=== PATIENT | male | born 1990 | race Caucasian/White ===

== ENCOUNTER 2019-01-27 06:43 | Emergency (ER) | payer OTHER ==
[~2019-01-27] VITALS: Ht 175.3 cm; Wt 81.7 kg
[2019-01-27] MEDS ORDERED: HIBICLENS118 ML TOP (07:36)
[2019-01-27] MEDS ORDERED: BACTRIM DS TAB1 EACH PO (07:36)
[2019-01-27] MEDS ORDERED: CORTIZONE-10 PL28 GM TOP (07:36)
[2019-01-27 07:40] VITALS: BP 155/104
[2019-01-29 17:07] LABS: SYPHILIS AB Negative (Negative)
== END 2019-01-27 07:40 | disposition home or self-care (01) ==
LOC: EDSEX 06:43 → ER 06:43
PROVIDERS: Emergency Medicine
DX: F42.4 Excoriation (skin-picking) disorder (principal); B20 Human immunodeficiency virus [HIV] disease; F31.9 Bipolar disorder, unspecified; F41.9 Anxiety disorder, unspecified